=== PATIENT | female | born 1970 | race African-American/Black ===

== ENCOUNTER 2016-11-14 07:12 | Emergency (ER) | payer OTHER ==
[~2016-11-14] VITALS: Ht 160 cm; Wt 78.2 kg
[~2016-11-14 07:12] MED LIST: (None)3.5 GM OP; ACETTAB3 OR; ACYCLOVIR200 MG PO; ALAVERT10 MG PO; AMOXICILLIN500 MG PO; ANAPROX275 MG OR; BACTRIM DS1 TAB PO; BUTALBITAL/ACETAMIN1 PO; CIPROFLOXACN500 MG PO; CLEOCIN VAG2 % VA; CLOBETASOL0.051 EX; DIFLUCAN150 MG OR; DOXYCYCL HYC100 MG OR; EXCEDRI3 OR; FEMCON FE; FIORICE1 PO; FIORICET PO; FLAGYL500 MG OR; FLONASE NASAL50 MCG; GENTAMICIN15 ML/BTL OP; HYDROCO/APAP1 TA2; HYDROCORTISO2.51 EX; HYDROXYZ HCL25 MG PO; KETOROLAC10 MG OR; LOESTRIN 24 PO; MEDDOSEPAK PO; METROGEL VAG0.75 % VA; NAPROXEN250 MG PO; NAPROXEN375 MG OR; NAPROXEN500 MG PO; NO MEDICATIONS; ORTHO TRI-CY PO; PERMETHRIN5 % EX; ROCEPHIN 2250 MG/VIA IM; TERCONAZOLE80 MG; TORADOL OR; ULTRAM50 MG OR; VESICARE5 MG PO
[2016-11-14] MEDS ORDERED: ATENOLOL25 MG PO (07:21)
[2016-11-14] MEDS ORDERED: AMOX/K CLAV875 M1 PO (07:22)
[2016-11-14 08:02] LABS: HEMATOCRIT 40.8 % (37.0-47.0); HEMOGLOBIN 13.5 g/dl (12.0-16.0); IMMATURE GRANULOCYTES 0.2 % (0.0-1.0); MEAN CELL VOLUME 88.5 fL CALC (80.0-100.0); MEAN CORPUSCULAR HGB 29.3 pG CALC (26.0-32.0); MEAN CORPUSCULAR HGB CONC 33.1 g/L CALC (32.0-36.0); NEUT# 7.07 thou/uL (2.00-7.15); RED BLOOD COUNT 4.61 mill/uL (4.20-5.60)
[2016-11-14 08:09] LABS: URINE BLOOD DIPSTICK LARGE (NEGATIVE); URINE CLARITY TURBID; URINE COLOR YELLOW; URINE GLUCOSE - DIPSTICK NEGATIVE (NEGATIVE); URINE KETONE 40 mg/dL (NEGATIVE); URINE LEUK ESTERASE TRACE (NEGATIVE); URINE NITRITE - DIPSTICK NEGATIVE (Negative); URINE PH 5.5 (4.5-8.0); URINE PROTEIN - DIPSTICK TRACE mg/dL (NEG-TRACE); URINE SPECIFIC GRAVITY 1.025; URINE UROBILINOGEN - DIPSTICK 0.2 E.U./dL (0.2)
[2016-11-14 08:14] LABS: URINE BILIRUBIN - DIPSTICK NEGATIVE (NEGATIVE)
[2016-11-14 08:20] LABS: URINE AMORPH SEDIMENT MANY hpf (NONE-FEW); URINE RBC 25-50 RBC/hpf (0-5)
[2016-11-14 08:21] LABS: ALBUMIN 4.4 g/dL (3.2-5.0); ALKALINE PHOSPHATASE 43 u/l (38-126); ANION GAP 19 (6-22 (CALC)); BILIRUBIN, TOTAL 0.7 mg/dL (0.0-1.4); BUN 10 mg/dL (7-17); BUN/CREATININE RATIO 12 (12-20 (CALC)); CALCIUM 9.3 mg/dL (8.4-10.2); CARBON DIOXIDE 19 mmol/l (22-30); CHLORIDE 104 mmol/l (95-108); CREATININE 0.9 mg/dL (0.5-1.0); GFR > 60 ML/MIN (>=60 (CALC)); GFR FOR AFR.AMER. > 60 ML/MIN (>=60 (CALC)); GLUCOSE 97 mg/dL (65-105); POTASSIUM 5.1 mmol/l (3.5-5.1); SGOT/AST 28 u/l (14-36); SGPT/ALT 25 u/l (9-52); SODIUM 137 mmol/l (137-146); TOTAL PROTEIN 8.4 g/dL (6.3-8.2); URINE SQUAMOUS EPITHELIAL CELL FEW EPI/hpf (0-FEW); URINE WBC 0-2 WBC/hpf (0-5)
[2016-11-14 10:17] VITALS: BP 112/73
== END 2016-11-14 10:17 | disposition home or self-care (01) | DRG 153 ==
LOC: ED 07:12
PROVIDERS: Emergency Medicine
DX: J02.0 Streptococcal pharyngitis (principal); R50.9 Fever, unspecified

== ENCOUNTER 2017-09-17 10:30 | Emergency (ER) | payer OTHER ==
[~2017-09-17] VITALS: Ht 160 cm; Wt 74.5 kg
[~2017-09-17 10:30] MED LIST changes: +AMOX/K CLAV875 M1 PO; +ATENOLOL25 MG PO
[2017-09-17 11:34] LABS: URINE BACTERIA MANY hpf; URINE EPITHELIAL CELLS MANY EPI/hpf (0-FEW); URINE RBC 50-100 RBC/hpf (0-5)
[2017-09-17 12:01] LABS: HEMATOCRIT 41.4 % (37.0-47.0); HEMOGLOBIN 13.6 g/dl (12.0-16.0); IMMATURE GRANULOCYTES 1.3 % (0.0-1.0); MEAN CELL VOLUME 91.2 fL CALC (80.0-100.0); MEAN CORPUSCULAR HGB CONC 32.9 g/L CALC (32.0-36.0); NEUT# 9.26 thou/uL (2.00-7.15); RED BLOOD COUNT 4.54 mill/uL (4.20-5.60); RED CELL DISTRI WIDTH 14.2 % (11.5-15.5)
[2017-09-17 12:15] LABS: ALBUMIN 4.3 g/dL (3.2-5.0); ALKALINE PHOSPHATASE 64 u/l (38-126); AMYLASE 61 u/l (30-110); ANION GAP 19 (6-22 (CALC)); BILIRUBIN, TOTAL 0.4 mg/dL (0.0-1.4); BUN 10 mg/dL (7-17); BUN/CREATININE RATIO 10 (12-20 (CALC)); CARBON DIOXIDE 23 mmol/l (22-30); CHLORIDE 102 mmol/l (95-108); CREATININE 1.1 mg/dL (0.5-1.0); GFR 54 ML/MIN (>=60 (CALC)); GFR FOR AFR.AMER. > 60 ML/MIN (>=60 (CALC)); LIPASE 57 u/l (23-300); POTASSIUM 4.1 mmol/l (3.5-5.1); SGOT/AST 23 u/l (14-36); SGPT/ALT 34 u/l (9-52); SODIUM 140 mmol/l (137-146); TOTAL PROTEIN 7.4 g/dL (6.3-8.2)
[2017-09-17] MEDS ORDERED: METRONIDAZOL500 MG PO (13:55)
[2017-09-17] MEDS ORDERED: ZOFRAN ODT4 MG PO (13:55)
[2017-09-17] MEDS ORDERED: CIPROFLOXACN500 MG PO (13:55)
[2017-09-17] MEDS ORDERED: LOMOTIL2.5 MG PO (13:59)
[2017-09-17 14:08] VITALS: BP 126/75
[2017-09-18] MEDS ORDERED: ZOFRAN4 MG/TAB PO (17:19)
== END 2017-09-17 14:17 | disposition home or self-care (01) | DRG 690 ==
LOC: ED 10:30
PROVIDERS: Emergency Medicine
DX: N39.0 Urinary tract infection, site not specified (principal); K52.9 Noninfective gastroenteritis and colitis, unspecified; I10 Essential (primary) hypertension
CPT/HCPCS: Q9967

== ENCOUNTER 2017-09-18 13:42 | Emergency (ER) | payer OTHER ==
[~2017-09-18] VITALS: Ht 160 cm; Wt 74.5 kg
[~2017-09-18 13:42] MED LIST changes: +LOMOTIL2.5 MG PO; +METRONIDAZOL500 MG PO; +ZOFRAN ODT4 MG PO
[2017-09-18 14:52] LABS: HEMATOCRIT 40.6 % (37.0-47.0); HEMOGLOBIN 13.2 g/dl (12.0-16.0); IMMATURE GRANULOCYTES 0.1 % (0.0-1.0); MEAN CELL VOLUME 91.2 fL CALC (80.0-100.0); MEAN CORPUSCULAR HGB 29.7 pG CALC (26.0-32.0); MEAN CORPUSCULAR HGB CONC 32.5 g/L CALC (32.0-36.0); NEUT# 5.2 thou/uL (2.00-7.15); RED BLOOD COUNT 4.45 mill/uL (4.20-5.60)
[2017-09-18 15:20] LABS: ALBUMIN 3.9 g/dL (3.2-5.0); ALKALINE PHOSPHATASE 63 u/l (38-126); ANION GAP 19 (6-22 (CALC)); BILIRUBIN, TOTAL 0.2 mg/dL (0.0-1.4); BUN 11 mg/dL (7-17); BUN/CREATININE RATIO 13 (12-20 (CALC)); CARBON DIOXIDE 22 mmol/l (22-30); CHLORIDE 103 mmol/l (95-108); CREATININE 0.9 mg/dL (0.5-1.0); GFR > 60 ML/MIN (>=60 (CALC)); GFR FOR AFR.AMER. > 60 ML/MIN (>=60 (CALC)); LIPASE 134 u/l (23-300); POTASSIUM 3.8 mmol/l (3.5-5.1); SGOT/AST 25 u/l (14-36); SGPT/ALT 30 u/l (9-52); SODIUM 141 mmol/l (137-146)
[2017-09-18 17:02] LABS: URINE BLOOD DIPSTICK LARGE (NEGATIVE); URINE GLUCOSE - DIPSTICK NEGATIVE (NEGATIVE); URINE KETONE >=80 mg/dL (NEGATIVE); URINE LEUK ESTERASE TRACE (NEGATIVE); URINE NITRITE - DIPSTICK NEGATIVE (Negative); URINE PROTEIN - DIPSTICK 100 mg/dL (NEG-TRACE); URINE SPECIFIC GRAVITY >=1.030
[2017-09-18 17:03] LABS: URINE BILIRUBIN - DIPSTICK MODERATE (NEGATIVE); URINE CLARITY CLOUDY; URINE COLOR DK. YELLOW
[2017-09-18 17:05] LABS: URINE RBC TNTC RBC/hpf (0-5); URINE SQUAMOUS EPITHELIAL CELL FEW EPI/hpf (0-FEW)
[2017-09-18 17:13] LABS: COCAINE NEGATIVE (NEGATIVE); METHADONE NEGATIVE (NEGATIVE); TETRAHYDROCANNABIONOL NEGATIVE (NEGATIVE); TRICYLIC ANTIDEPRESSANTS NEGATIVE (NEGATIVE)
[2017-09-18 17:14] LABS: BARBITURATES POSITIVE (NEGATIVE); OXCYCODONE NEGATIVE (NEGATIVE)
[2017-09-18] MEDS ORDERED: ZOFRAN4 MG/TAB PO (17:19)
[2017-09-18 17:38] VITALS: BP 103/66
== END 2017-09-18 17:38 | disposition home or self-care (01) | DRG 392 ==
LOC: ED 13:42
PROVIDERS: Emergency Medicine
DX: K52.9 Noninfective gastroenteritis and colitis, unspecified (principal); R51 Headache; I10 Essential (primary) hypertension

== ENCOUNTER 2019-08-28 | Emergency (ER) | payer OTHER ==
[~2019-08-28] MED LIST changes: +ZOFRAN4 MG/TAB PO
[2019-08-28] MEDS ORDERED: LEVOTHYROXIN25 MC1 PO (12:51)
[2019-08-28] MEDS ORDERED: FIORICET PO (12:52)
[2019-08-28] MEDS ORDERED: MAXALT-MLT10 MG PO (12:52)
== END 2019-08-28 14:15 | disposition home or self-care (01) | DRG 103 ==
DX: G43.909 Migraine, unspecified, not intractable, without status migrainosus (principal)

== ENCOUNTER 2020-12-25 09:47 | Emergency (ER) | payer OTHER ==
[~2020-12-25] VITALS: Ht 160 cm; Wt 85.0 kg
[~2020-12-25 09:47] MED LIST changes: +LEVOTHYROXIN25 MC1 PO; +MAXALT-MLT10 MG PO
[2020-12-25] MEDS ORDERED: DOXY-CAPS100 MG PO (11:00)
[2020-12-25] MEDS ORDERED: EPSOM SAL1 PO (11:00)
[2020-12-25 11:07] VITALS: BP 140/85
== END 2020-12-25 11:11 | disposition home or self-care (01) | DRG 603 ==
LOC: ED 09:47
PROC: 0H9MXZZ Drainage of Right Foot Skin, External Approach (ICD-10-PCS; principal; 2020-12-25)
DX: L03.115 Cellulitis of right lower limb (principal); E03.9 Hypothyroidism, unspecified

== ENCOUNTER 2021-02-04 14:08 | Emergency (ER) | payer OTHER ==
[~2021-02-04] VITALS: Ht 160 cm; Wt 94.1 kg
[~2021-02-04 14:08] MED LIST changes: +DOXY-CAPS100 MG PO; +EPSOM SAL1 PO
[2021-02-04 14:25] VITALS: BP 145/82
== END 2021-02-04 17:19 | disposition home or self-care (01) | DRG 103 ==
LOC: ED 14:08
DX: G43.909 Migraine, unspecified, not intractable, without status migrainosus (principal); E03.9 Hypothyroidism, unspecified